=== PATIENT | male | born 1940 | race Hispanic/Latino ===

== ENCOUNTER 2018-07-03 00:52 | Observation (INO) | payer OTHER ==
[~2018-07-03] VITALS: Ht 175.3 cm; Wt 61.2 kg
[~2018-07-03 00:52] MED LIST: ALBU8.5H8 IH; ASPI-1005 PO; ATOR40TA69 PO; CLOP75TA14 PO; FLUT220HFA IH; FURO40TA7 PO; LISI5TAB PO; METO50TA9 PO; TIOT18CA3 IH
[2018-07-03] MEDS ORDERED: ERYTHROMYCIN BASE 0.5% OPHTH OINT 1 GM TUBE ONE (00:55)
[2018-07-03 01:21] LABS: ABG BASE EXCESS -2.1 mmol/L (-2.0-3.0); ABG HCO3 23.5 mmol/L (21.0-28.0); ABG OXYGEN SATURATION 96.9 % (95.0-99.0); ABG PCO2 43 mmHg (35-48)
[2018-07-03 01:29] LABS: BASOPHILS % (AUTO) 0.4 % (0.0-5.0); EOSINOPHILS % (AUTO) 0.3 % (0.0-8.0); HEMATOCRIT 41.4 % (42-54); LYMPHOCYTES % (AUTO) 23.5 % (21.0-51.0); MEAN CORPUSCULAR HEMOGLOBIN 30.4 pg (27.0-33.0); MONOCYTES % (AUTO) 14.6 % (3.0-13.0); NEUTROPHILS % (AUTO) 61.2 % (40.0-77.0); NUCLEATED RED BLOOD CELLS 0.1 % (0.0-0.19); PLATELET COUNT (AUTO) 217 K/uL (130-400); RED BLOOD CELL COUNT(AUTO) 4.49 MIL/uL (4.50-6.20); RED CELL DISTRIBUTION WIDTH 13.5 % (11.0-15.5); WHITE BLOOD COUNT (AUTO) 10.7 K/uL (4.8-10.8)
[2018-07-03 01:39] LABS: INR 1.01 (0.85-1.15); PARTIAL THROMBOPLASTIN TIME 25.2 SEC (26.3-35.5); PROTHROMBIN TIME 10.6 SEC (9.6-11.6)
[2018-07-03] MEDS ORDERED: METHYLPREDNISOLONE SOD SUCC 125MG/2ML VIAL ONE (01:46)
[2018-07-03] MEDS ORDERED: LEVOFLOXACIN 500 MG/D5W 100 ML 100 ML ONE (01:46)
[2018-07-03 01:58] LABS: B-TYPE NATRIURETIC PEPTIDE 465 pg/mL (0-100)
[2018-07-03 02:06] LABS: CREATININE 0.9 mg/dL (0.5-1.5); POTASSIUM 3.2 mmol/L (3.5-5.1)
[2018-07-03 02:10] LABS: BILIRUBIN,TOTAL 1.8 mg/dL (0.2-1.0); TOTAL PROTEIN, SERUM 6.9 g/dL (6.0-8.3)
[2018-07-03] MEDS ORDERED: POTASSIUM BICARB/CIT AC 25 MEQ TABLET.EFF ONE (02:21)
[2018-07-03] MEDS ORDERED: FUROSEMIDE 10 MG/ML 4ML VIAL ONE (02:36)
[2018-07-03] MEDS ORDERED: IPRATROPIUM/ALBUTEROL SULFATE 3 ML SOLUTION IH ONE ×2 (02:37→06:30)
[2018-07-03] MEDS ORDERED: ACETAMINOPHEN 325 MG TAB PO PRN ×2 (05:00)
[2018-07-03] MEDS ORDERED: POTASSIUM CHLORIDE 20 MEQ ERTAB PO PRN ×3 (05:00→17:30)
[2018-07-03] MEDS ORDERED: LIDOCAINE HCL-MPF 1% 2ML VIAL IJ PRN (05:00)
[2018-07-03] MEDS ORDERED: POTASSIUM CHLORIDE 20MEQ/100ML 100 ML IV PRN ×2 (05:00→17:30)
[2018-07-03] MEDS ORDERED: ONDANSETRON HCL 4 MG/2 ML VIAL IVP PRN (05:00)
[2018-07-03] MEDS ORDERED: POTASSIUM CHLORIDE 10% ELIXIR 20 MEQ/15 ML UDCUP PO PRN ×3 (05:00→17:30)
[2018-07-03] MEDS ORDERED: IPRATROPIUM 0.5 MG/2.5 ML INH IH SCH (06:00)
[2018-07-03] MEDS: IPRATROPIUM/ALBUTEROL SULFATE 3 ML SOLUTION IH SCH ×4 (06:49→23:35)
[2018-07-03 08:52] VITALS: BP 131/68
[2018-07-03] MEDS ORDERED: FUROSEMIDE 10 MG/ML 2ML VIAL IVP SCH (09:00)
[2018-07-03] MEDS: METOPROLOL SUCCINATE 50 MG PO SCH (09:00)
[2018-07-03] MEDS: AZITHROMYCIN 500MG+NS 250ML 250 ML IV SCH (09:56)
[2018-07-03] MEDS: ASPIRIN 81MG TAB.CHEW PO SCH (09:57)
[2018-07-03] MEDS: CLOPIDOGREL BISULFATE 75 MG TAB PO SCH (09:57)
[2018-07-03] MEDS: LISINOPRIL 5 MG TABLET PO SCH ×2 (09:58→20:39)
[2018-07-03 11:49] VITALS: BP 137/63
[2018-07-03] MEDS: METHYLPREDNISOLONE SOD SUCC 40MG/ML 1ML IVP SCH ×2 (14:35→20:35)
[2018-07-03 16:00] VITALS: BP 108/59
[2018-07-03] MEDS: FUROSEMIDE 10 MG/ML 2ML VIAL IVP SCH ×2 (16:54→20:37)
[2018-07-03] MEDS ORDERED: LIDOCAINE HCL-MPF 1% 2ML VIAL IVP PRN ×3 (17:30)
[2018-07-03] MEDS ORDERED: POTASSIUM CHLORIDE 10MEQ/100ML 100 ML IV PRN ×2 (17:30)
[2018-07-03 19:41] VITALS: BP 129/54
[2018-07-03] MEDS: ATORVASTATIN CALCIUM 40 MG TABLET PO SCH (20:37)
[2018-07-03 23:43] VITALS: BP 124/64
[2018-07-04] MEDS: PROMETHAZINE/CODEINE 6.25-10MG/5ML CUP PO PRN ×2 (02:50→20:36)
[2018-07-04] MEDS: METHYLPREDNISOLONE SOD SUCC 40MG/ML 1ML IVP SCH ×4 (02:52→20:33)
[2018-07-04 03:52] VITALS: BP 95/43
[2018-07-04] MEDS: AZITHROMYCIN 500MG+NS 250ML 250 ML IV SCH (05:05)
[2018-07-04] MEDS: IPRATROPIUM/ALBUTEROL SULFATE 3 ML SOLUTION IH SCH ×4 (05:50→23:07)
[2018-07-04 07:30] VITALS: BP 95/51
[2018-07-04] MEDS: FUROSEMIDE 10 MG/ML 2ML VIAL IVP SCH ×2 (08:50→20:33)
[2018-07-04] MEDS: ASPIRIN 81MG TAB.CHEW PO SCH (08:50)
[2018-07-04] MEDS: LISINOPRIL 5 MG TABLET PO SCH ×2 (08:51→20:35)
[2018-07-04] MEDS: CLOPIDOGREL BISULFATE 75 MG TAB PO SCH (08:51)
[2018-07-04] MEDS: GENTAMICIN SULFATE 0.3% 3.5 GM OPHTH OINT OU SCH ×4 (08:59→20:40)
[2018-07-04] MEDS: METOPROLOL SUCCINATE 50 MG PO SCH (09:00)
[2018-07-04 10:09] LABS: HEMATOCRIT 36.4 % (42-54); LYMPHOCYTES % (AUTO) 3.3 % (21.0-51.0); MEAN CORPUSCULAR HEMOGLOBIN 29.6 pg (27.0-33.0); MEAN CORPUSCULAR HGB CONC 32.2 g/dL (32.0-36.0); MEAN CORPUSCULAR VOLUME 91.8 fL (79-99); MONOCYTES % (AUTO) 3.1 % (3.0-13.0); NEUTROPHILS % (AUTO) 93.6 % (40.0-77.0); PLATELET COUNT (AUTO) 203 K/uL (130-400); RED BLOOD CELL COUNT(AUTO) 3.97 MIL/uL (4.50-6.20); RED CELL DISTRIBUTION WIDTH 13.5 % (11.0-15.5); WHITE BLOOD COUNT (AUTO) 13.7 K/uL (4.8-10.8)
[2018-07-04 11:06] VITALS: BP 97/46
[2018-07-04 12:00] LABS: CREATININE 1.4 mg/dL (0.5-1.5); POTASSIUM 3.8 mmol/L (3.5-5.1)
[2018-07-04 16:05] VITALS: BP 102/52
[2018-07-04] MEDS: INSULIN HUMULIN R 100 UNIT/ML 3ML SQ SCH ×2 (16:59→21:17)
[2018-07-04 19:24] VITALS: BP 111/54
[2018-07-04] MEDS: ATORVASTATIN CALCIUM 40 MG TABLET PO SCH (20:35)
[2018-07-04 23:32] VITALS: BP 119/56
[2018-07-05 00:24] VITALS: BP 124/59
[2018-07-05] MEDS: METHYLPREDNISOLONE SOD SUCC 40MG/ML 1ML IVP SCH ×3 (00:55→13:21)
[2018-07-05 03:42] LABS: BASOPHILS % (AUTO) 0.1 % (0.0-5.0); HEMATOCRIT 33.7 % (42-54); LYMPHOCYTES % (AUTO) 3.9 % (21.0-51.0); MEAN CORPUSCULAR HEMOGLOBIN 30.4 pg (27.0-33.0); MEAN CORPUSCULAR HGB CONC 33.6 g/dL (32.0-36.0); MEAN CORPUSCULAR VOLUME 90.7 fL (79-99); MONOCYTES % (AUTO) 2.7 % (3.0-13.0); NEUTROPHILS % (AUTO) 93.3 % (40.0-77.0); PLATELET COUNT (AUTO) 237 K/uL (130-400); RED BLOOD CELL COUNT(AUTO) 3.72 MIL/uL (4.50-6.20); RED CELL DISTRIBUTION WIDTH 13.4 % (11.0-15.5); WHITE BLOOD COUNT (AUTO) 15.1 K/uL (4.8-10.8)
[2018-07-05 03:47] LABS: CREATININE 1.1 mg/dL (0.5-1.5)
[2018-07-05 04:00] VITALS: BP 106/62
[2018-07-05] MEDS: AZITHROMYCIN 500MG+NS 250ML 250 ML IV SCH (04:15)
[2018-07-05 05:55] VITALS: BP 106/62
[2018-07-05] MEDS: IPRATROPIUM/ALBUTEROL SULFATE 3 ML SOLUTION IH SCH ×2 (06:01→11:03)
[2018-07-05] MEDS: INSULIN HUMULIN R 100 UNIT/ML 3ML SQ SCH ×3 (06:32→16:30)
[2018-07-05 07:43] VITALS: BP 119/68
[2018-07-05] MEDS: LISINOPRIL 5 MG TABLET PO SCH (08:31)
[2018-07-05] MEDS: ASPIRIN 81MG TAB.CHEW PO SCH (08:31)
[2018-07-05] MEDS: CLOPIDOGREL BISULFATE 75 MG TAB PO SCH (08:31)
[2018-07-05] MEDS: FUROSEMIDE 10 MG/ML 2ML VIAL IVP SCH (08:33)
[2018-07-05] MEDS: GENTAMICIN SULFATE 0.3% 3.5 GM OPHTH OINT OU SCH ×2 (08:34→13:21)
[2018-07-05] MEDS: METOPROLOL SUCCINATE 50 MG PO SCH (08:34)
[2018-07-05 11:15] VITALS: BP 121/57
[2018-07-05] MEDS ORDERED: LEVO500T2 PO (13:39)
[2018-07-05] MEDS ORDERED: METH4TAB3 PO (13:39)
== END 2018-07-05 16:34 | disposition home or self-care (01) ==
LOC: EDH 00:52 → EDHIP 03:30 → INTOOBSV 03:30 → OBSVTOIN 03:30 → 2AH 08:30
PROVIDERS: ADMIT Hospitalist; ATTEND Hospitalist
DX: J44.1 Chronic obstructive pulmonary disease with (acute) exacerbation (principal); I25.10 Atherosclerotic heart disease of native coronary artery without angina pectoris; I11.0 Hypertensive heart disease with heart failure; I50.9 Heart failure, unspecified; E87.6 Hypokalemia; E78.5 Hyperlipidemia, unspecified; D72.829 Elevated white blood cell count, unspecified; F17.210 Nicotine dependence, cigarettes, uncomplicated; Z82.0 Family history of epilepsy and other diseases of the nervous system; Z82.49 Family history of ischemic heart disease and other diseases of the circulatory system; Z82.3 Family history of stroke; Z82.5 Family history of asthma and other chronic lower respiratory diseases; Z91.19 Patient's noncompliance with other medical treatment and regimen; Z83.3 Family history of diabetes mellitus; Z95.1 Presence of aortocoronary bypass graft
CPT/HCPCS: 36415 ×3; 36600; 71045; 80048 ×2; 80053; 82550; 82803; 82948 ×5; 83605 ×2; 83880; 84484; 85025 ×3; 85610; 85730; 87040; 87070; 87076; 87077; 87186; 87804 ×2; 93005; 94640 ×11; 94660; 94664; 96372 ×2; 96374; 96375; 96376 ×3; 99285; G0378 ×61; J0456 ×3; J1815 ×2; J1940 ×5; J1956; J2920 ×7; J2930; Q0169 ×2